=== PATIENT | female | born 1960 | race Caucasian/White ===

== ENCOUNTER 2017-06-29 19:18 | Emergency (ER) | payer OTHER ==
[~2017-06-29] VITALS: Ht 160 cm; Wt 72.6 kg
[~2017-06-29 19:18] MED LIST: BENADRYL A12.5 MG/5 PO; CIPRO500 MG PO; COZAAR25 MG; DOLOGEN CAPLET1 EACH PO; LYRICA150 MG PO; NORVASC10 MG; NORVASC5 MG PO; SINGULAIR10 MG; TAMS0.4C PO; TOPAMAX15 MG PO; TOPAMAX25 MG; ULTRACET PO; VISTARIL25 MG PO
[2017-06-29] MEDS ORDERED: HYDROCHLOROTH12.5 M1 (19:36)
[2017-06-29] MEDS ORDERED: NEURONTIN300 MG (19:36)
[2017-06-30] MEDS ORDERED: ZOFRAN4 MG PO (01:22)
[2017-06-30] MEDS ORDERED: PEPCID40 MG PO (01:22)
[2017-06-30] MEDS ORDERED: LEVSIN/SL0.125 MG SL (01:22)
== END 2017-06-30 01:29 | disposition home or self-care (01) ==
LOC: ER 19:18
DX: R10.84 Generalized abdominal pain (principal); R11.0 Nausea

== ENCOUNTER 2017-12-17 17:56 | Emergency (ER) | payer OTHER ==
[~2017-12-17] VITALS: Ht 160 cm; Wt 72.6 kg
[~2017-12-17 17:56] MED LIST changes: +HYDROCHLOROTH12.5 M1; +LEVSIN/SL0.125 MG SL; +NEURONTIN300 MG; +PEPCID40 MG PO; +ZOFRAN4 MG PO
[2017-12-17] MEDS ORDERED: TAMS0.4C (18:15)
[2017-12-17] MEDS ORDERED: PLAVIX75 MG (18:15)
[2017-12-17] MEDS ORDERED: NORFLEX100MG PO (20:56)
== END 2017-12-17 21:30 | disposition home or self-care (01) ==
LOC: ER 17:56
DX: M94.0 Chondrocostal junction syndrome [Tietze] (principal)